=== PATIENT | female | born 1965 | race African-American/Black ===

== ENCOUNTER → 2018-01-26 | Outpatient (CLI) | payer OTHER | END | disposition home or self-care (01) | LOC: KCIC MAMMO 14:56 | DX: Z12.31 Encounter for screening mammogram for malignant neoplasm of breast (principal) | CPT/HCPCS: 77063; 77067 ==

== ENCOUNTER 2020-07-31 22:42 | Emergency (ER) | payer SELFPAY ==
[~2020-07-31] VITALS: Ht 167.6 cm; Wt 121.0 kg
[~2020-07-31 22:42] MED LIST: GABA300C18 PO; GABA600T7 PO; MELO15TA23 PO; MELO7.5T29 PO; MORP-16 PO; MORP15TA PO; TOPI50TA38 PO; TRIA1CAP3 PO; maxide PO
[2020-07-31 23:29] LABS: BASO # 0.1 x10^3/uL (0.0-0.2); BASO % 1 % (0-3); EOS % 0 % (0-3); HEMATOCRIT 43.3 % (36.0-47.0); HEMOGLOBIN 14.3 g/dL (12.0-15.5); LYMPH # 0.6 x10^3/uL (1.0-4.8); LYMPH % 6 % (24-48); MEAN CORPUSCULAR HEMOGLOBIN 30 pg (25-35); MEAN CORPUSCULAR HGB CONC 33 g/dL (31-37); MEAN CORPUSCULAR VOLUME 92 fL (79-100); MONO # 0.2 x10^3/uL (0.0-1.1); MONO % 2 % (0-9); NEUT # 9.3 x10^3/uL (1.8-7.7); NEUT % 92 % (31-73); PLATELET COUNT 245 x10^3/uL (140-400); RED BLOOD COUNT 4.71 x10^6/uL (3.50-5.40); RED CELL DISTRIBUTION WIDTH 12.5 % (11.5-14.5); WHITE BLOOD COUNT 10.1 x10^3/uL (4.0-11.0)
[2020-07-31] MEDS ORDERED: IV NORMAL SALINE 1000ML BAG 1,000 ML IV ONE (23:30)
[2020-07-31] MEDS ORDERED: FAMOTIDINE 20 MG/2 ML VIAL IVP ONE (23:30)
[2020-07-31] MEDS ORDERED: fentaNYL PF VIAL 100 MCG/2 ML VIAL IVP ONE (23:30)
[2020-07-31] MEDS ORDERED: ONDANSETRON PF 4 MG/2 ML VIAL. IVP ONE ×2 (23:30→23:45)
[2020-07-31 23:41] LABS: CALCIUM 10.1 mg/dL (8.5-10.1); CREATININE 0.9 mg/dL (0.6-1.0); GFR 78.1; POTASSIUM 3.2 mmol/L (3.5-5.1)
[2020-07-31] MEDS ORDERED: PROCHLORPERAZINE 10 MG/2 ML VIAL. IV ONE (23:45)
[2020-07-31 23:47] LABS: ALBUMIN 3.8 g/dL (3.4-5.0); ALBUMIN/GLOBULIN RATIO 0.8 (1.0-1.7); TOTAL BILIRUBIN 0.9 mg/dL (0.2-1.0); TOTAL PROTEIN 8.3 g/dL (6.4-8.2)
[2020-08-01 00:10] LABS: % LYMPHS 5 % (24-48); % MONOS 3 % (0-10); % SEGS 92 % (35-66); PLT ESTIMATE ADEQUATE (ADEQUATE)
[2020-08-01] MEDS ORDERED: IOHEXOL 300 MG/ML 100ML VIAL. IV ONE (00:15)
[2020-08-01] MEDS ORDERED: CONTRAST GIVEN. MC PRN (00:15)
--- NOTE | 2020-08-01 00:19 | PHYS DOC ---
Past Medical History Past Medical History: Fibromyalgia, Hypertension, Other Additional Past Medical Histor: RA (ARBEN WEBB GEOMAGNETICIAN) Past Surgical History: No Surgical History (ARBEN WEBB APRN) Smoking Status: Never Smoker Alcohol Use: None Drug Use: None (ARBEN WEBB APRN) General Adult EDM: Chief Complaint: GI PROBLEM HPI: HPI: Patient is a 55 year old female who presents with began having pain that is generalized all over her abdomen with vomiting of 1500 today. She states she did not eat anything since last night. She states her last meal last night was pizza. She states she has felt this before in the past. She states that at 1630 today she took 8 mg of Zofran pills but they did not help. Upon arrival patient is asking for pain medication and nausea medication. Patient takes gabapentin, morphine and meloxicam daily. She has a history of fibromyalgia, hypertension and rheumatoid arthritis. When I asked the quality of her pain she states " it is just pain". Patient denies chest pain, shortness of breath, fever, urinary symptoms, back pain, numbness or tingling, focal weakness, headache, dizziness, diarrhea, constipation. (ARBEN WEBB GEOMAGNETICIAN) Review of Systems: Review of Systems: Constitutional: Denies fever or chills. [] Eyes: Denies change in visual acuity. [] HENT: Denies nasal congestion or sore throat. [] Respiratory: Denies cough or shortness of breath. [] Cardiovascular: Denies chest pain or edema. [] GI: + abdominal pain, +nausea, +vomiting, denies bloody stools or diarrhea. [] : Denies dysuria. [] Musculoskeletal: Denies back pain or joint pain. [] Integument: Denies rash. [] Neurologic: Denies headache, focal weakness or sensory changes. [] Endocrine: Denies polyuria or polydipsia. [] Lymphatic: Denies swollen glands. [] Psychiatric: Denies depression or anxiety. [] (ARBEN WEBB GEOMAGNETICIAN) Heart Score: Risk Factors: Risk Factors: DM, Current or recent (<one month) smoker, HTN, HLP, family history of CAD, obesity. Risk Scores: Score 0 - 3: 2.5% MACE over next 6 weeks - Discharge Home Score 4 - 6: 20.3% MACE over next 6 weeks - Admit for Clinical Observation Score 7 - 10: 72.7% MACE over next 6 weeks - Early Invasive Strategies (ARBEN WEBB APRN) Current Medications: Current Medications Medications (Trade) Dose Ordered Sig/Christopher Start Time Stop Time Status Last Admin Dose Admin Famotidine (Pepcid Vial) 20 mg 1X ONCE 07/31/20 23:30 07/31/20 23:31 DC 07/31/20 23:45 20 MG Fentanyl Citrate (Fentanyl 2ml Vial) 25 mcg 1X ONCE 07/31/20 23:30 07/31/20 23:31 DC 07/31/20 23:50 25 MCG Info (CONTRAST GIVEN -- Rx MONITORING) 1 each PRN DAILY PRN 08/01/20 00:15 08/03/20 00:14 Iohexol (Omnipaque 300 Mg/ml) 75 ml 1X ONCE 08/01/20 00:15 08/01/20 00:16 Ondansetron HCl (Zofran) 8 mg 1X ONCE 07/31/20 23:45 07/31/20 23:46 UNV Prochlorperazine Edisylate (Compazine) 10 mg 1X ONCE 07/31/20 23:45 07/31/20 23:46 DC 07/31/20 23:42 10 MG Sodium Chloride 1,000 ml @ 1,000 mls/hr 1X ONCE 07/31/20 23:30 08/01/20 00:29 07/31/20 23:41 1,000 MLS/HR (ARBEN WEBB APRN) Allergies: Allergies: Allergies Coded Allergies Type Severity Reaction Last Updated Verified doxycycline Allergy Unknown nausea and vomiting 02/26/16 Yes duloxetine HCl Allergy Unknown rash 02/26/16 Yes (ARBEN WEBB APRN) Physical Exam: PE: Constitutional: Well developed, well nourished, no acute distress, non-toxic appearance. [] HENT: Normocephalic, atraumatic, bilateral external ears normal, oropharynx moist, no oral exudates, nose normal. [] Eyes: PERRLA, EOMI, conjunctiva normal, no discharge. [] Neck: Normal range of motion, no tenderness, supple, no stridor. [] Cardiovascular:Heart rate regular Tachy rhythm, no murmur [] Lungs & Thorax: Bilateral breath sounds clear to auscultation [] Abdomen: Bowel sounds normal, soft, generalized tenderness, no masses, no pulsatile masses. [] Skin: Warm, dry, no erythema, no rash. [] Back: No tenderness, no CVA tenderness. [] Extremities: No tenderness, no cyanosis, no clubbing, ROM intact, no edema. [] Neurologic: Alert and oriented X 3, normal motor function, normal sensory function, no focal deficits noted. [] Psychologic: Affect normal, judgement normal, mood normal. [] (ARBEN WEBB APRN) Current Patient Data: Labs: Laboratory Tests Test 07/31/20 23:10 White Blood Count 10.1 x10^3/uL (4.0-11.0) Red Blood Count 4.71 x10^6/uL (3.50-5.40) Hemoglobin 14.3 g/dL (12.0-15.5) Hematocrit 43.3 % (36.0-47.0) Mean Corpuscular Volume 92 fL (79-100) Mean Corpuscular Hemoglobin 30 pg (25-35) Mean Corpuscular Hemoglobin Concent 33 g/dL (31-37) Red Cell Distribution Width 12.5 % (11.5-14.5) Platelet Count 245 x10^3/uL (140-400) Neutrophils (%) (Auto) 92 % (31-73) H Lymphocytes (%) (Auto) 6 % (24-48) L Monocytes (%) (Auto) 2 % (0-9) Eosinophils (%) (Auto) 0 % (0-3) Basophils (%) (Auto) 1 % (0-3) Neutrophils # (Auto) 9.3 x10^3/uL (1.8-7.7) H Lymphocytes # (Auto) 0.6 x10^3/uL (1.0-4.8) L Monocytes # (Auto) 0.2 x10^3/uL (0.0-1.1) Eosinophils # (Auto) 0.0 x10^3/uL (0.0-0.7) Basophils # (Auto) 0.1 x10^3/uL (0.0-0.2) Segmented Neutrophils % 92 % (35-66) H Lymphocytes % 5 % (24-48) L Monocytes % 3 % (0-10) Platelet Estimate Adequate (ADEQUATE) Sodium Level 139 mmol/L (136-145) Potassium Level 3.2 mmol/L (3.5-5.1) L Chloride Level 98 mmol/L (98-107) Carbon Dioxide Level 27 mmol/L (21-32) Anion Gap 14 (6-14) Blood Urea Nitrogen 9 mg/dL (7-20) Creatinine 0.9 mg/dL (0.6-1.0) Estimated GFR (Cockcroft-Gault) 78.1 BUN/Creatinine Ratio 10 (6-20) Glucose Level 156 mg/dL (70-99) H Calcium Level 10.1 mg/dL (8.5-10.1) Total Bilirubin 0.9 mg/dL (0.2-1.0) Aspartate Amino Transferase (AST) 38 U/L (15-37) H Alanine Aminotransferase (ALT) 31 U/L (14-59) Alkaline Phosphatase 104 U/L (46-116) Troponin I Quantitative < 0.017 ng/mL (0.000-0.055) Total Protein 8.3 g/dL (6.4-8.2) H Albumin 3.8 g/dL (3.4-5.0) Albumin/Globulin Ratio 0.8 (1.0-1.7) L Lipase 66 U/L (73-393) L Laboratory Tests 07/31/20 23:10 Laboratory Tests 07/31/20 23:10 Vital Signs: Vital Signs Date Time Temp Pulse Resp B/P (MAP) Pulse Ox O2 Delivery O2 Flow Rate FiO2 07/31/20 23:50 22 99 Room Air 07/31/20 22:45 98.4 98 198/101 (133) 98.4 (AREBN WEBB APRN) EKG: EK and read by Dr. Lopez is sinus tach and no STEMI [] (ARBEN WEBB APRN) Radiology/Procedures: Radiology/Procedures: [] Impression: [facility] [address] [place], [place] [id number] IMAGING REPORT Signed PATIENT: PHIL WILKINSON ACCOUNT: [id number] : 1965 LOCATION: ER AGE: 55 SEX: F EXAM STATUS: REG ER ORD. PHYSICIAN: ARBEN WEBB APRN REASON: abd pain, vomiting PROCEDURE: CT ABD PELV W/ IV CONTRST ONLY PQRS Compliance Statement: One or more of the following individualized dose reduction techniques were utilized for this examination: 1. Automated exposure control 2. Adjustment of the mA and/or kV according to patient size 3. Use of iterative reconstruction technique CT abdomen/pelvis with contrast 07/31/2020 12:05 AM INDICATION: Abdominal pain, vomiting COMPARISON: None available TECHNIQUE: Multiple axial CT images of the abdomen and pelvis were obtained after the intravenous administration of nonionic contrast. Coronal and sagittal reformats are provided. FINDINGS: Lung bases are clear. Heart size within normal limits. Visualized portions of the liver are normal. Calcifications within the spleen likely represent sequela prior granulomatous exposure. There is a right adrenal nodule measuring 1.8 x 1.4 cm which is indeterminate (series 2, image 22). Pancreas and gallbladder are normal in appearance. The abdominal aorta is normal in course and caliber. There are no pathologically enlarged lymph nodes in the abdomen and pelvis. There is no abdominal free fluid. There is no free intraperitoneal air. Under distention of the colon, limits evaluation. There is a supraumbilical midline ventral hernia containing fat with minimal inflammation measuring 1.9 cm at the neck. There are no dilated loops of small or large bowel. No bowel obstruction or inflammation. The kidneys enhance symmetrically. There is no suspicious renal mass. There is no hydronephrosis. Limited evaluation for renal calculi. Lobulated contour of the uterus suggests uterine leiomyoma. There is suggestion of a subendometrial uterine fibroid along the uterine fundus measuring 1.8 cm and 1.8 cm. Left adnexal cyst may represent a dominant follicle measuring 4.0 x 3.1 cm. Urinary bladder is within normal limits given degree of distention. Dextroconvex scoliosis of the lumbar spine is noted with apex dextroconvex curvature at L3-L4. IMPRESSION: 1. No evidence for bowel obstruction or inflammation. 2. There is a supraumbilical midline ventral hernia containing fat with minimal inflammation measuring 1.9 cm at the neck. 3. Indeterminate right adrenal nodule measuring 1.8 x 1.4 cm. Further evaluation with adrenal mass protocol CT or MRI may be of benefit. 4. Fibroid uterus. Suggestion of a 1.8 cm subendometrial uterine fibroid at the uterine fundus. Left adnexal cyst may represent a dominant follicle measuring 4.0 x 3.1 cm. Electronically signed by: Leonila Donovan MD (08/01/2020 12:37 AM) [facility] DICTATED and SIGNED BY: LEONILA DONOVAN MD DATE: 08/01/20 [id number] (ARBEN WEBB APRN) Course & Med Decision Making: Course & Med Decision Making Pertinent Labs and Imaging studies reviewed. (See chart for details) See HPI. Abdomen is soft with generalized tenderness throughout all quadrants. Skin pink warm and dry. Ambulatory with a steady gait. Speaks in full complete sentences. EKG shows sinus tach but no STEMI. No extremity edema. Patient has received 10 of Compazine. She is still complaining of nausea. I have ordered for of Zofran and 10 of Reglan IV. Patient is received normal saline bolus. 0100: Patient is signed out to Dr. Lopez. IMPRESSION: 1. No evidence for bowel obstruction or inflammation. 2. There is a supraumbilical midline ventral hernia containing fat with minimal inflammation measuring 1.9 cm at the neck. 3. Indeterminate right adrenal nodule measuring 1.8 x 1.4 cm. Further ev aluation with adrenal mass protocol CT or MRI may be of benefit. 4. Fibroid uterus. Suggestion of a 1.8 cm subendometrial uterine fibroid at the uterine fundus. Left adnexal cyst may represent a dominant follicle measuring 4.0 x 3.1 cm. [] (ARBEN WEBB APRN) Course & Med Decision Making Assumed care of patient at checkout. At checkout lab work and CT abdomen pelvis had been completed and were unremarkable. Patient continues to complain of pain and nausea. Patient has not had any vomiting here in the emergency room but has had dry heaving. Upon my evaluation patient has a soft abdomen. She is hypertensive but states that she has not taken any of her medications today. She is requesting ice and water. Given patient's normal lab work and CT does l ikely patient has gastroenteritis. Will give her a second liter of fluid and symptomatic treatment. I have discussed with patient that narcotics are not indicated at this time given that the patient does not have acute pathology. Patient's test results and vitals while in the ED were fully reviewed and discussed with the patient. Patient is stable and at this time does not need admission to the hospital. We have discussed strict return precautions and the importance of following up with their Primary Care Physician. Patient stated understanding and was given an opportunity to ask any questions. Patient is in agreement with plan. (MARTA LOPEZ MD) Dragon Disclaimer: Dragon Disclaimer: This electronic medical record was generated, in whole or in part, using a voice recognition dictation system. (ARBEN WEBB APRN) Departure Departure Impression: Primary Impression: Gastroenteritis Disposition: 01 DC HOME SELF CARE/HOMELESS Condition: STABLE Referrals: JERMAINE MORALES MD (PCP) Patient Instructions: Viral Gastroenteritis ARBEN WEBB APRN Aug 01, 2020 00:19 MARTA LOPEZ MD Aug 01, 2020 01:54
--- NOTE | 2020-08-01 00:39 | RAD ---
PQRS Compliance Statement: One or more of the following individualized dose reduction techniques were utilized for this examinat ion: 1. Automated exposure control 2. Adjustment of the mA and/or kV according to patient size 3. Use of iterative reconstruction technique CT abdomen/pelvis with contrast 07/31/2020 12:05 AM INDICATION: Abdominal pain, vomiting COMPARISON: None available TECHNIQUE: Multiple axial CT images of the abdomen and pelvis were obtained after the intravenous adm inistration of nonionic contrast. Coronal and sagittal reformats are provided. FINDINGS: Lung bases are clear. Heart size within normal limits. Visualized portions of the liver are normal. C alcifications within the spleen likely represent sequela prior granulomatous exposure. There is a rig ht adrenal nodule measuring 1.8 x 1.4 cm which is indeterminate (series 2, image 22). Pancreas and ga llbladder are normal in appearance. The abdominal aorta is normal in course and caliber. There are no pathologically enlarged lymph nodes in the abdomen and pelvis. There is no abdominal free fluid. The re is no free intraperitoneal air. Under distention of the colon, limits evaluation. There is a supra umbilical midline ventral hernia containing fat with minimal inflammation measuring 1.9 cm at the nec k. There are no dilated loops of small or large bowel. No bowel obstruction or inflammation. The kidn eys enhance symmetrically. There is no suspicious renal mass. There is no hydronephrosis. Limited andrés luation for renal calculi. Lobulated contour of the uterus suggests uterine leiomyoma. There is sugge stion of a subendometrial uterine fibroid along the uterine fundus measuring 1.8 cm and 1.8 cm. Left adnexal cyst may represent a dominant follicle measuring 4.0 x 3.1 cm. Urinary bladder is within norm al limits given degree of distention. Dextroconvex scoliosis of the lumbar spine is noted with apex d extroconvex curvature at L3-L4. IMPRESSION: 1. No evidence for bowel obstruction or inflammation. 2. There is a supraumbilical midline ventral hernia containing fat with minimal inflammation measuri ng 1.9 cm at the neck. 3. Indeterminate right adrenal nodule measuring 1.8 x 1.4 cm. Further evaluation with adrenal mass p rotocol CT or MRI may be of benefit. 4. Fibroid uterus. Suggestion of a 1.8 cm subendometrial uterine fibroid at the uterine fundus. Left adnexal cyst may represent a dominant follicle measuring 4.0 x 3.1 cm. Electronically signed by: Ruby Rider MD (08/01/2020 12:37 AM) [facility]
[2020-08-01] MEDS ORDERED: ONDANSETRON PF 4 MG/2 ML VIAL. IVP ONE (01:00)
[2020-08-01] MEDS ORDERED: METOCLOPRAMIDE HCL 10 MG/2 ML VIAL. IVP ONE (01:00)
[2020-08-01] MEDS ORDERED: HALOPERIDOL LACTATE 5 MG/ML VIAL. IVP ONE (01:15)
[2020-08-01] MEDS ORDERED: IV NORMAL SALINE 1000ML BAG 1,000 ML IV ONE (01:15)
[2020-08-01] MEDS ORDERED: PROMETHAZINE 12.5 MG TABLET. PO ONE (01:15)
[2020-08-01] MEDS ORDERED: LABETALOL 20 MG/4 ML DISP.SYRIN. IVP ONE ×2 (01:30→01:34)
[2020-08-01 02:12] LABS: BILIRUBIN,URINE NEGATIVE (NEG); CLARITY,URINE CLEAR; COLOR,URINE YELLOW; NITRITE,URINE NEGATIVE (NEG); PH,URINE 7.5 (<5.0-8.0); PROTEIN,URINE NEGATIVE (NEG-TRACE); UROBILINOGEN,URINE 0.2 mg/dL (0.2 mg/dL)
[2020-08-01 02:13] LABS: BACTERIA,URINE 0 /HPF (0-FEW); RBC,URINE RARE /HPF (0-2); WBC,URINE 11 /HPF (0-4)
[2020-08-01 03:33] VITALS: BP 190/93
--- NOTE | 2020-08-01 08:53 | EKG ---
[facility] [address] [place] [id number] Test Date: 2020-07-31 Test Time: 23:46:07 Pat Name: PHIL WILKINSON Department: Room: Gender: F [employer] Sales Representative: : 1965 Requested By: ARBEN WEBB Order Number: [id number] Reading MD: Measurements Intervals [place] Rate: 103 P: -39 [place]: 114 QRS: -6 QRSD: 92 T: -25 QT: 344 QTc: 453 Interpretive Statements SINUS TACHYCARDIA LEFTWARD AXIS ST & T ABNORMALITY, CONSIDER INFERIOR ISCHEMIA OR LEFT VENTRICULAR STRAIN ABNORMAL ECG RI6.01 No previous ECG available for comparison
--- NOTE | 2020-08-02 13:24 | NUR ---
IP: Informed pt of negative COVID test. Pt verbalized understanding.
== END 2020-08-01 03:33 | disposition home or self-care (01) ==
LOC: ER 22:42
DX: K52.9 Noninfective gastroenteritis and colitis, unspecified (principal); R11.2 Nausea with vomiting, unspecified; R10.84 Generalized abdominal pain; M79.7 Fibromyalgia; I10 Essential (primary) hypertension; Z88.1 Allergy status to other antibiotic agents; Z88.8 Allergy status to other drugs, medicaments and biological substances
CPT/HCPCS: 36415; 74177; 80053; 81001; 83690; 84484; 85007; 85025; 93005; 96361; 96374; 96375; 99285; J0780; J1630; J2405; J2765; J3010; J3490; J7030; Q0169; Q9967; U0003; C9803